=== PATIENT | male | born 1965 | race American Indian/Alaskan Native ===

== ENCOUNTER 2017-07-29 20:05 | Emergency (ER) | payer BC ==
[2017-07-29 21:18] LABS: Alanine Aminotransferase 35 units/L (7-56); Albumin 3.8 g/dL (3.9-5); Albumin/Globulin Ratio 1.2 %; Anion Gap 14 mmol/L; BUN/Creatinine Ratio 15; Basophils % (Auto) 0.5 % (0.0-1.8); Blood Urea Nitrogen 17 mg/dL (9-20); Calcium 8.6 mg/dL (8.4-10.2); Carbon Dioxide 30 mmol/L (22-30); Chloride 96.9 mmol/L (98-107); Eosinophils % (Auto) 2.6 % (0.0-4.3); Glucose 149 mg/dL (75-100); Hematocrit 42.3 % (35.5-45.6); Hemoglobin 14.2 gm/dl (11.8-15.2); Mean Corpuscular HGB Conc 34 % (32-34); Mean Corpuscular Hemoglobin 29 pg (28-32); Mean Corpuscular Volume 85 fl (84-94); Platelet Count 242 K/mm3 (140-440); Red Blood Count 4.99 M/mm3 (3.65-5.03); Red Cell Distribution Width 14.4 % (13.2-15.2); Sodium 138 mmol/L (137-145); White Blood Count 4.6 K/mm3 (4.5-11.0)
--- NOTE | 2017-07-29 21:37 | Cat Scan Report ---
FINAL REPORT EXAM: CT HEAD/BRAIN WO CON HISTORY: dizzy TECHNIQUE: Axial noncontrast CT images of the brain were performed. Total exam DLP 1147.33 mGy-cm FINDINGS: There is normal manzo-white differentiation without midline shift or mass effect. There is mild cortical atrophy. There is incidentally identified cavum septum pellucidum and cavum vergae. There are no intraventricular blood products or extra-axial fluid collections. Dysconjugate gaze. Orbital cones and apices are unremarkable. There is mild ethmoid air cell mucosal thickening. The imaged paranasal sinuses are otherwise well aerated. There is no calvarial fracture or other abnormality. IMPRESSION: Mild cortical atrophy. No blood products, transcortical infarct, or mass identified. Incidentally identified cavum vergae and cavum septum pellucidum, normal anatomic variants. Minimal ethmoid air cell mucosal thickening. If symptoms persist and there are no contraindications, recommend MRI brain with diffusion-weighted imaging.
[2017-07-29 21:38] LABS: Alkaline Phosphatase 59 units/L (35-129)
[2017-07-29 21:58] LABS: Potassium 2.7 mmol/L (3.6-5.0)
[2017-07-29] MEDS ORDERED: NORMODYNE IV ONE (23:40)
--- NOTE | 2017-07-29 23:41 | Emergency Department Report ---
ED Dizziness HPI - General Chief Complaint: Dizziness Stated Complaint: DIZZINESS Time Seen by Provider: 07/29/17 23:26 Source: patient Mode of arrival: Ambulatory Limitations: No Limitations - History of Present Illness Initial Comments: 52-year-old male presents to ER with complaints of dizziness. This happened just prior to arrival. He was driving and suddenly felt very dizzy. He also complained of discomfort in his right shoulder. Past medical history is enough for hypertension. He is noncompliant with his hypertensive meds. Patient denies headache, no nausea vomiting or diarrhea.. MD Complaint: dizziness, lightheadedness -: Sudden Timing: sudden onset Description: sense of movement, lightheadedness History of Same: No Improves With: nothing Worsens With: nothing Associated Symptoms: diaphoresis, weakness, other (discomfort in his right shoulder). denies: ataxia, chest pain, confusion, fever/chills, loss of appetite, malaise, seizure, shortness of breath, syncope - Related Data Previous Rx's Medication Instructions Recorded Last Taken Type Aspirin [Aspirin EC] 81 mg PO DAILY #30 tablet. 07/30/17 Unknown Rx Labetalol [Normodyne TAB] 100 mg PO BID #60 tablet 07/30/17 Unknown Rx Lisinopril [Zestril TAB] 20 mg PO QDAY #30 tablet 07/30/17 Unknown Rx Allergies Allergy/AdvReac Type Severity Reaction Status Date / Time No Known Allergies Allergy Unverified 07/29/17 20:33 ED Review of Systems ROS: Stated complaint: DIZZINESS Other details as noted in HPI Comment: All other systems reviewed and negative Constitutional: see HPI, malaise, weakness. denies: diaphoresis, fever Eyes: denies: eye pain, eye discharge, vision change ENT: denies: throat pain, dental pain, hearing loss, epistaxis Respiratory: shortness of breath. denies: cough, orthopnea, SOB with exertion, SOB at rest Cardiovascular: denies: chest pain, palpitations, dyspnea on exertion, edema, syncope, paroxysmal nocturnal dyspnea Endocrine: no symptoms reported Gastrointestinal: denies: abdominal pain, nausea, vomiting, diarrhea, constipation, hematemesis, melena Genitourinary: denies: urgency, dysuria, frequency, hematuria, discharge Musculoskeletal: other (discomfort in his right shoulder). denies: joint swelling Skin: denies: lesions, change in color, change in hair/nails, pruritus Neurological: headache, weakness. denies: numbness, paresthesias ED Past Medical Hx - Past Medical History Previous Medical History?: Yes Hx Hypertension: Yes Hx Diabetes: Yes - Surgical History Past Surgical History?: No - Social History Smoking Status: Never Smoker Substance Use Type: None - Medications Home Medications: Home Medications Medication Instructions Recorded Confirmed Last Taken Type Aspirin [Aspirin EC] 81 mg PO DAILY #30 tablet. 07/30/17 Unknown Rx Labetalol [Normodyne TAB] 100 mg PO BID #60 tablet 07/30/17 Unknown Rx Lisinopril [Zestril TAB] 20 mg PO QDAY #30 tablet 07/30/17 Unknown Rx ED Physical Exam - General Limitations: No Limitations General appearance: alert, in distress ([id number]) - Head Head exam: Present: atraumatic, normocephalic - Eye Eye exam: Present: normal appearance, PERRL, EOMI. Absent: scleral icterus, conjunctival injection, nystagmus, periorbital swelling - ENT ENT exam: Present: normal exam, normal orophraynx, mucous membranes moist - Neck Neck exam: Present: normal inspection, full ROM. Absent: tenderness, meningismus, lymphadenopathy, thyromegaly - Respiratory Respiratory exam: Present: normal lung sounds bilaterally. Absent: respiratory distress, wheezes, rhonchi, chest wall tenderness, accessory muscle use, decreased breath sounds, prolonged expiratory - Cardiovascular Cardiovascular Exam: Present: regular rate, normal rhythm, normal heart sounds - GI/Abdominal GI/Abdominal exam: Present: soft, normal bowel sounds. Absent: distended, tenderness, guarding, rebound, rigid, hyperactive bowel sounds, hypoactive bowel sounds, organomegaly, mass, bruit - Rectal Rectal exam: Present: deferred - Extremities Exam Extremities exam: Present: normal inspection, full ROM, normal capillary refill. Absent: tenderness, pedal edema, joint swelling - Back Exam Back exam: Present: normal inspection, full ROM. Absent: CVA tenderness (L), muscle spasm - Neurological Exam Neurological exam: Present: alert, oriented X3, CN II-XII intact, motor sensory deficit ED Course Vital Signs 07/29/17 07/29/17 07/30/17 20:19 22:53 00:10 Temperature 98.6 F 98.6 F Pulse Rate 92 H 83 73 Respiratory 17 18 16 Rate Blood Pressure 189/109 195/115 Blood Pressure 213/110 195/115 [Left] O2 Sat by Pulse 96 100 100 Oximetry 07/30/17 07/30/17 07/30/17 01:18 01:19 01:38 Temperature Pulse Rate 77 77 76 Respiratory 16 16 Rate Blood Pressure 171/95 Blood Pressure 171/95 156/86 [Left] O2 Sat by Pulse 100 Oximetry 07/30/17 03:40 Temperature Pulse Rate 73 Respiratory 16 Rate Blood Pressure Blood Pressure 164/84 [Left] O2 Sat by Pulse 100 Oximetry - Reevaluation(s) Reevaluation #1: 07/30/17 03:54 Patient feels much better ED Medical Decision Making - Lab Data Result diagrams: 07/29/17 20:45 07/29/17 20:45 - EKG Data -: EKG Interpreted by Me - EKG Data 07/30/17 03:33 Normal sinus rhythm, rate of 77 bpm, right carrero axis, nonspecific ST changes in V2 V3. Left atrial enlargement - Radiology Data Radiology results: report reviewed, image reviewed Critical Care Time: No Critical care attestation.: If time is entered above; I have spent that time in minutes in the direct care of this critically ill patient, excluding procedure time. ED Disposition Clinical Impression: Dizziness, Uncontrolled hypertension Disposition: -01 TO HOME OR SELFCARE Is pt being admited?: No Does the pt Need Aspirin: Yes Condition: Stable Instructions: Hypertension (ED), Dizziness (ED), Vertigo (ED) Additional Instructions: You are strong;y advised to comply with the hypertensive medication Prescriptions: Aspirin [Aspirin EC] 81 mg PO DAILY #30 tablet. Labetalol [Normodyne TAB] 100 mg PO BID #60 tablet Lisinopril [Zestril TAB] 20 mg PO QDAY #30 tablet Referrals: PRIMARY CARE, [Primary Care Provider] - 3-5 Days Time of Disposition: 03:58
[2017-07-30 00:03] LABS: Urine Drugs of Abuse Note Disclamer
[2017-07-30 00:10] LABS: Bilirubin,Urine NEG (Negative); Blood,Urine NEG (Negative); Ketones,Urine NEG (Negative); Leukocyte Esterase,Urine NEG (Negative); Mucus,Urine FEW /HPF; Nitrite,Urine NEG (Negative); Urobilinogen,Urine < 2.0 mg/dL (<2.0)
[2017-07-30 00:22] LABS: RBC,Urine < 1.0 /HPF (0.0-6.0)
[2017-07-30] MEDS ORDERED: APRESOLINE IV ONE (00:33)
[2017-07-30 00:34] LABS: INR 0.95 (0.87-1.13)
[2017-07-30 00:39] LABS: Creatine Kinase MB 7.6 ng/mL (0.0-4.0)
[2017-07-30] MEDS ORDERED: K-DUR PO ONE (02:00)
[2017-07-30] MEDS ORDERED: BABY ASPIRIN PO ONE (03:59)
[2017-07-30 04:37] VITALS: BP 153/90
--- NOTE | 2017-07-30 07:21 | XRay Report ---
CHEST ONE VIEW INDICATION: Lightheadedness, dizziness. COMPARISON: None similar. FINDINGS: Portable, single, frontal chest radiograph demonstrates normal cardiomediastinal silhouette. Clear lungs. Unremarkable bones. CONCLUSION: No acute disease in the chest. Thank you for the opportunity to participate in this patient's care.
== END 2017-07-30 04:40 | disposition home or self-care (01) ==
LOC: ED 20:05
DX: R42 Dizziness and giddiness (principal); I10 Essential (primary) hypertension; Z79.82 Long term (current) use of aspirin; E11.9 Type 2 diabetes mellitus without complications
CPT/HCPCS: 36415; 70450; 71010; 80053; 80307; 81001; 82550; 82553; 82962; 83735; 83880; 84484; 85025; 85610; 93005; 93010; 96374; 96375; 99285; G0480; J0360; 80320